=== PATIENT | female | born 1945 | race Caucasian/White ===

== ENCOUNTER → 2017-03-19 | Outpatient (CLI) | payer OTHER ==
[~2017-03-19] MED LIST: ACET1TAB84 PO; AMLH/550 PO; ANAS1TAB19 PO; ASPCH81X PO; ATEN50TA PO; BNC/20125 PO; BUPIVACAINE 0.25% 30 ML VIAL ONE; BUPIVACAINE/EPINEPHRINE 0.25% 1:200,000 30 ML VIAL ONE; CHOL20007 PO; CITA20TA9 PO; CLON1TAB3 PO; COEN100C15 PO; CTP/1 PO; FISHOIL PO; MELA1TAB5 PO; MULTTAB58 PO; ORTHO JOINT ANESTHETIC ONE; POTA20TA16 PO; POVIDONE-IODINE OP SOLN 30 ML BTL ONE; SNK PO; TRAM-453 PO
[2017-03-19 14:39] VITALS: BP 147/92; PULSE 52; TEMP 37.1; O2SAT 96
--- NOTE | 2017-03-19 16:39 | Radiation Oncology Follow-Up ---
Radiation Oncology Follow-Up Date of Visit March 19, 2017. 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 Received 5,130 cGy utilizing hypofractionation. Last Edited By: Gloria Montiel on February 25, 2017 11 :47 History of Present Illness Ms. Smith is a 71-year-old female with a family history of breast cancer. The patient's sister was diagnosed with breast cancer and recently seen and treated in our department. The patient has a remote history of bilateral breast reductions performed 25-30 years ago. Patient was being followed with bilateral screening mammograms with her most recent normal scan on 07/28/2013. The patient's next recorded screening mammogram was on 09/13/2016. This showed a potential abnormality in the left breast with a potential nodule versus summation in the middle depth position of the left breast at the 9 o'clock position. The right breast was unremarkable. On 09/17/2016 to patient underwent a digital breast tomosynthesis of the left breast with targeted ultrasound. This showed 2 suspicious hypoechoic masses in the medial aspect of the left breast. At the 10 o'clock position approximately 5 cm nipple was a spiculated 0.7 x 0.6 x 0.5 cm mass. Medial to this at the 9 o'clock position near the areolar margin was a more well-circumscribed hypoechoic nodule which measures 0.5 x 0.5 x 0.8 cm. Biopsy these lesions were recommended. On 09/21/2016 the patient underwent a core biopsy of the left breast 10 o'clock position near the areolar edge. This revealed an invasive ductal carcinoma histologic grade 1 of 3. The biopsy of the left breast retroareolar region revealed benign mammary tissue. The invasive component was strongly estrogen receptor positive and moderately progesterone receptor positive. HER-2/rené" protein expression was negative. Accession #: [id number]. Surgical consultation was recommended. Patient was therefore seen by Dr. Lois Moore on 10/09/2016. She discussed surgical treatment options with the patient and she agreed to proceed with a breast conserving technique consisting of lumpectomy and sentinel node biopsy. On 10/18/2016 patient underwent a surgical procedure. The left central breast region at the 9 to 10:00 areolar position was the site of the partial mastectomy. This identified an invasive carcinoma and OS, grade 2 measuring 2.5 x 2.0 x 1.8 cm. The lesion was 0.4 cm from the nearest anterior margin and the final margins were negative. There was no evidence of lymphovascular invasion. A single sentinel lymph node was noted however no lymphoid tissue was present. Accession #: [id number]. Patient therefore went on to have a repeat left axillary excision performed on 11/21/2016. This revealed 7 axillary lymph nodes and all 7 were negative for metastatic carcinoma. Accession #: [id number]. The final pathologic stage was therefore pT2 pN0(sn-), ER positive, UT positive and HER-2/rené negative. The patient was seen by Dr. Onesimo Black for evaluation and discussion of the role of adjuvant systemic therapy. He has ordered Prosigna genomic testing on the tumor. This has been sent with a response expected this week. He will discuss with the patient the implications and significance of the final test results when available. Based on the findings he will likely recommend adjuvant antiestrogen therapy following the completion of her adjuvant radiation if the testing reveals a low to intermediate risk of dissemination. If there is a high risk of dissemination he will discuss the potential use of adjuvant chemotherapy. We were asked to see this patient in referral to discuss the role of adjuvant radiation once a final results from the genomic testing is available. The Prosigna test had a score of 80. Chemotherapy was not given. She underwent a CT simulation was found to be a candidate for hypo-fractionation. Radiation was given and completed on 02/11/2017. She received 5130 cGy. Interim History She's been doing well over the past month. The areas of skin irritation healed without difficulty. She does have a skin lesion of the right breast that is irritated. This is been evaluated by her primary care physician and there are plans for her to have this removed. She has been applying Neosporin to the lesion. She has noticed no changes to her breast. There've been no masses noted and no change of the axilla. She's had no swelling of her arm. She is scheduled for follow-up mammography through Dr. Moore's office. She is on Arimidex and denies side effects. Allergies Coded Allergies: Amlodipine (Verified Allergy, Intermediate, SWELLS, 07/24/16) Statins (Verified Allergy, Unknown, SEVERE MUSCLE ACHES AND CRAMPING, 07/24) Tartrazine (Verified Adverse Reaction, Unknown, headache, 07/24/16) Zaleplon (Verified Adverse Reaction, Unknown, headache, 07/24/16) Home Medications Scheduled Amiloride/Hctz (Moduretic 5-50MG), 0.5 TAB PO QAM Anastrozole (Arimidex), 1 TAB PO DAILY Aspirin (Aspirin Chewable), 81 MG PO DAILY Atenolol (Tenormin), 50 MG PO QAM Cholecalciferol (Vitamin D3), 1 TAB PO QAM Citalopram Hydrobromide (Celexa), 40 MG PO QAM Clonazepam (Klonopin), 1 MG PO HS Clonidine Hcl (Catapres), 0.1 MG PO BID Coenzyme Q10 (Ubidecarenone) (Co Q10), 1 CAP PO QAM Fish Oil ([place]-3), 1 CAP PO QAM Melatonin (Kp Melatonin), 1 TAB PO HS Multiple Vitamin (Multivitamin), 1 TAB PO QAM Olmesartan/Hctz (Benicar Hct 20/12.5), 1 TAB PO QAM Potassium Ext Rel (Klor-Con), 20 MEQ PO QAM Senna (Senna Lax), 17.2 MG PO HS Scheduled PRN Acetaminophen (Tylenol Arthritis Ext Rel), 650 MG PO Q8H PRN for Headache or Pain Tramadol Hcl (Ultram), 50 MG PO Q8HR PRN Review of Systems Gastrointestinal: Symptoms: WNL Oral: Symptoms: No Problems Respiratory: Symptoms: WNL Urinary: Symptoms: WNL Skin: Symptoms: No Problems Breast: Right Upper Arm Measurement: 33.3 Right Mid Arm Measurement: 26.6 Right Wrist Measurement: 16.0 Left Upper Arm Measurement: 34.4 Left Mid Arm Measurement: 26.9 Left Wrist Measurement: 16.6 Arm Dominence: Right Additional Notes: She completed a distress management report and answered "no" to all questions. Physical Exam Vital Signs Date Time Temp Pulse Resp B/P Pulse Ox O2 Delivery O2 Flow Rate FiO2 03/19/17 14:39 37.1 52 18 147/92 96 Fatigue: None Eyes: normal inspection, EOMI ENT: normal ENT inspection, hearing grossly normal Neck: no adenopathy, thyroid normal Respiratory/Chest: lungs clear, no respiratory distress, no accessory muscle use Breast: Breast examination reveals well healed incisions bilaterally. There are no masses or tenderness and no axillary adenopathy. There are no skin retractions or nipple changes. Tattoos are noted on the left. She has a seroma of the left axilla. Using the [place] score cosmesis she has a excellent outcome. The lesion of the right breast is noted. This is raised and has a periphery of mild erythema. Topical the lesion appears to be keratotic. Cardiovascular: regular rate, rhythm, no gallop, no murmur Extremities: no pedal edema Neurologic/Psychiatric: no motor/sensory deficits, alert, normal mood/affect Skin: warm/dry Lymphatic: no adenopathy Assessment & Plan Plan: Continue regular follow-up with Dr. Black, Dr. Moore, and her primary care physician. She'll continue on the Arimidex. She stated that her sister had been diagnosed with breast cancer 6 months prior to her diagnosis. She was interested in genetic testing. We did review that she had a Prosigna test performed. I've asked her to review with Dr. Black or Oscar to see if she is a candidate for genetic testing. She has stated that follow-up mammography is currently scheduled. She hasn't appointment scheduled to see Dr. Moore at the end of the month. I've asked her to stop using Neosporin on the lesion of the right breast. Her primary care physician is planning to excise this lesion in the near future. I recommended that she use Aquaphor to this area. Today we completed a cancer survivorship care plan. A copy of the document was given to the patient. Please see that document for further information. We asked her to return to our office in 6 months. She may call if she has any questions or concerns in the interim. Total Time In Follow-Up I spent 20 minutes speaking to the patient and performing examination. I spent 20 minutes reviewing information, completing the survivorship document, and completing this note. Copy To Elisha Reece D.O.; Lois Moore MD; Onesimo Black M.D. Problem Qualifiers (1) Breast cancer: Breast location: upper outer quadrant of breast Estrogen receptor status: positive Patient sex: female Laterality: left Qualified Codes: C50.412 - Malignant neoplasm of upper-outer quadrant of left female breast; Z17.0 - Estrogen receptor positive status [ER+]
== END | disposition home or self-care (01) ==
LOC: C.ONC 14:34
PROVIDERS: ATTEND Physician Assistant Medical
DX: Z08 Encounter for follow-up examination after completed treatment for malignant neoplasm (principal); Z92.3 Personal history of irradiation; Z85.3 Personal history of malignant neoplasm of breast